=== PATIENT | female | born 1965 | race Caucasian/White ===

== ENCOUNTER 2018-12-14 07:28 | Outpatient (CLI) | payer MEDICAID ==
[2018-12-14 13:03] LABS: BASOPHILS % (AUTO) 0.7 %; EOSINOPHILS # (AUTO) 0.2 10^3/uL (0.0-0.7); EOSINOPHILS % (AUTO) 2.6 %; HGB - HEMOGLOBIN 12.9 g/dL (12.0-16.0); LYMPHOCYTES # (AUTO) 1.9 10^3/uL (1.5-3.5); MEAN CORPUSCULAR HEMOGLOBIN 30.7 pg (27.0-31.0); MEAN CORPUSCULAR VOLUME 87.8 fL (81.0-99.0); MEAN PLATELET VOLUME 8.4 fL (7.9-10.8); MONOCYTES # (AUTO) 0.3 10^3/uL (0.0-1.0); MONOCYTES % (AUTO) 5.3 %; NEUTROPHILS # (AUTO) 3.5 10^3/uL (1.5-6.6); NEUTROPHILS % (AUTO) 59.4 %; PLT - PLATELET COUNT 267 10^3/uL (130-450); RED BLOOD COUNT 4.21 10^6/uL (4.20-5.40); RED CELL DISTRIBUTION WIDTH 12.8 % (12.0-15.0); WHITE BLOOD COUNT 5.9 x10^3/uL (4.8-10.8)
[2018-12-14 13:12] LABS: ALBUMIN 4.1 g/dL (3.2-5.5); ALBUMIN/GLOBULIN RATIO 1.6 (1.0-2.2); ALKALINE PHOSPHATASE 47 IU/L (42-121); ALT ALANINE AMINOTRANSFERASE 15 IU/L (10-60); AST ASPARTATE AMINOTRANSFERASE 20 IU/L (10-42); BILIRUBIN,TOTAL 0.8 mg/dL (0.2-1.0); BUN - BLOOD UREA NITROGEN 11 mg/dL (6-20); CALCIUM 8.7 mg/dL (8.5-10.3); CARBON DIOXIDE - CO2 26 mmol/L (21-32); CHLORIDE 99 mmol/L (101-111); CHOL/HDL RATIO 2.9 (<4.4); CHOLESTEROL 221 mg/dL; CREATININE 0.6 mg/dL (0.4-1.0); GFR - MDRD 104 (>89); GLUCOSE 99 mg/dL (70-100); HDL CHOLESTEROL 75 mg/dL; LDL CHOLESTEROL,CALCULATED 125 mg/dL; LDL/HDL RATIO 1.7 (<4.4); SODIUM 132 mmol/L (135-145); TOTAL PROTEIN 6.7 g/dL (6.7-8.2); VLDL CHOLESTEROL 21 mg/dL
[2018-12-14 14:15] LABS: HB2 TOTAL 13.9 g/dL; HEMOGLOBIN A1C 0.46 g/dL; HEMOGLOBIN A1C % 5.2 % (4.6-6.2)
[2018-12-15 14:48] LABS: HEPATITIS C ANTIBODY NON-REACTIVE (NON-REACTIVE)
== END 2018-12-14 07:29 | disposition home or self-care (01) ==
LOC: LAB.F 07:28
PROVIDERS: ATTEND Registered Nurse
DX: Z00.00 Encounter for general adult medical examination without abnormal findings (principal)
CPT/HCPCS: 36415; 80053; 80061; 83036; 83721; 84443; 85025; 86803

== ENCOUNTER 2018-12-20 14:03 | Outpatient (CLI) | payer MEDICAID ==
--- NOTE | 2018-12-21 06:07 | DEXA Report ---
Reason: SCREENING FOR OSTEOPOROSIS Procedure Date: 12/20/2018 Accession Number: [id number] / [id number] Procedure: DEX - Dexa Spine and/or Hip CPT Code: FULL RESULT: EXAM: Dexa Spine and/or Hip DATE: 12/20/2018 3:24 PM CLINICAL HISTORY: SCREENING FOR OSTEOPOROSIS TECHNIQUE: Dual energy x-ray absorptiometry (DXA) was performed on a [employer] System. Regions measured are the AP Spine, femoral neck, and if needed forearm. COMPARISON: None. In accordance with the International Society for Clinical Densitometry (ISCD) guidelines, data from previous exams may be reanalyzed using current recommendations and techniques. This is done to allow a more accurate basis for comparison with the current study. FINDINGS: The data for the lumbar spine is as follows: BMD (g/cm/cm) T-SCORE Z-SCORE REGION L1 1.073 -0.5 0.4 L2 1.084 -1.0 -0.1 L3 1.090 -0.9 -0.1 L4 1.138 -0.5 0.3 TOTAL 1.099 -0.7 0.2 NOTE: All evaluable vertebrae are used for classification The data for the hip is as follows: BMD (g/cm/cm) T-SCORE Z-SCORE REGION Neck 0.845 -1.4 -0.4 TOTAL 0.884 -1.0 -0.3 NOTE: The femoral neck or total proximal femur, whichever is lowest, is used for classification. IMPRESSION: THE WHO CLASSIFICATION BASED ON THE INTERNATIONAL REFERENCE STANDARD IS OSTEOPENIA. THE FRACTURE RISK IS INCREASED. RECOMMENDATION: Patients with diagnosis of osteoporosis or osteopenia should have regular bone mineral density assessment. For those eligible for Medicare, routine testing is allowed once every 2 years. Testing frequency can be increased for patients who have rapidly progressing disease or for those who are receiving medical therapy to restore bone mass. COMMENT: World Health Organization (WHO) definitions for osteoporosis and osteopenia: NORMAL BMD: T-score at -1.0 or higher, fracture risk is low OSTEOPENIA BMD: T-score between -1.0 and -2.5, fracture risk is increased. OSTEOPOROSIS BMD: T-score at -2.5 or lower, fracture risk is high. National Osteoporosis Foundation recommends: 1. Obtain adequate dietary calcium (at least 1200 mg per day) and vitamin D (400-800 international units per day). 2. Participate, as appropriate, in regular weightbearing and muscle-strengthening exercise. 3. Avoid tobacco use and reduce alcohol and caffeine intake. 4. For more detailed information see the website at www.NOF.org.
== END 2018-12-20 14:04 | disposition home or self-care (01) ==
LOC: DI 14:03
PROVIDERS: ATTEND Registered Nurse
DX: Z13.820 Encounter for screening for osteoporosis (principal); M85.89 Other specified disorders of bone density and structure, multiple sites
CPT/HCPCS: 77080

== ENCOUNTER 2018-12-26 08:00 | Outpatient (CLI) | payer MEDICAID | END 2018-12-26 23:59 | disposition home or self-care (01) | LOC: LAB.R 08:00 | PROVIDERS: ATTEND Obstetrics & Gynecology | DX: N89.8 Other specified noninflammatory disorders of vagina (principal) | CPT/HCPCS: 87480; 87510; 87660 ==

== ENCOUNTER 2019-02-05 13:58 | Outpatient (CLI) | payer MEDICAID ==
--- NOTE | 2019-02-15 12:44 | Mammography Report ---
Reason: SCREENING MAMMO Procedure Date: 02/05/2019 Accession Number: [id number] / [id number] Procedure: ARABELLA - Screening Mammo w/Jose CPT Code: FULL RESULT: EXAM: Screening Mammo w/Jose DATE: 02/05/2019 2:39 PM CLINICAL HISTORY: Routine screening. No reported personal or family history of breast cancer. History of benign right breast biopsy. TECHNIQUE: (B) - Bilateral CC and MLO views were obtained. COMPARISON: 10/30/2015, 07/02/2014 PARENCHYMAL PATTERN: (D) - The breasts demonstrate heterogeneously dense fibroglandular parenchyma bilaterally. FINDINGS: Right breast: Stable biopsy marker is noted in the anterior 12:00 breast. There is a stable one view asymmetry seen in the cc view, posterior central, along the posterior glandular cone extending into the retroglandular fat. No change compared to 2013. No suspicious masses, calcifications or areas of distortion. Left breast: There are no suspicious masses, calcifications, or areas of distortion. IMPRESSION: Benign findings. BI-RADS category 2. RECOMMENDATION: (ANNUAL) - Recommend routine annual screening mammography. BI-RADS CATEGORY: (2) - Benign Findings. STANDARD QUALIFYING STATEMENTS: 1. This examination was not reviewed with the aid of Computer-Aided Detection (CAD). 2. A negative or benign imaging report should not preclude biopsy if clinically suspicious findings are present. 3. Dense breasts may obscure an underlying neoplasm. 4. This examination was reviewed with the aid of 3D breast imaging (tomosynthesis).
== END 2019-02-05 13:59 | disposition home or self-care (01) ==
LOC: DI 13:58
DX: Z12.31 Encounter for screening mammogram for malignant neoplasm of breast (principal)
CPT/HCPCS: 77063; 77067

== ENCOUNTER 2019-12-06 16:13 | Outpatient (CLI) | payer MEDICAID | END 2019-12-06 16:14 | disposition home or self-care (01) | LOC: LAB 16:13 | PROVIDERS: ATTEND Obstetrics & Gynecology | DX: N95.0 Postmenopausal bleeding (principal) | CPT/HCPCS: 36415; 82670; 83001 ==

== ENCOUNTER 2020-03-06 14:44 | Outpatient (CLI) | payer MEDICAID ==
--- NOTE | 2020-03-06 15:58 | Ultrasound Report ---
Reason: POSTMENOPAUSAL BLEEDING Procedure Date: 03/06/2020 Accession Number: [id number] / [id number] Procedure: US - Pelvic w/Transvaginal CPT Code: Final Report FULL RESULT: PROCEDURE: Pelvic w/Transvaginal INDICATIONS: POSTMENOPAUSAL BLEEDING TECHNIQUE: Real-time scanning was performed of the pelvic organs, with image documentation. Additional endovaginal scanning was necessary due to incomplete visualization of the adnexal and endometrial structures by transabdominal scanning. COMPARISON: None. FINDINGS: Transabdominal scanning: Limited scanning through the kidneys shows no hydronephrosis. No pathologic free abdominal or pelvic fluid. Endovaginal scanning: Uterus: Uterus is normal in size at 8.3 x 3.2 x 4.4 cm. The endometrium measures 2.8 mm in combined thickness. Ovaries: Right ovary measures 2.3 x 1.4 x 1.4 cm. The left ovary measures 2.2 x 2.1 x 1.2 cm. by Less than 12 simple follicles are identified bilaterally. Arterial and venous flow are present bilaterally. IMPRESSION: Unremarkable exam. If bleeding persists, further MULTIGRAPHER evaluation is recommended. Reviewed by: Nelia Centeno MD on 03/06/2020 3:57 PM PDT Approved by: Nelia Centeno MD on 03/06/2020 3:57 PM PDT Station ID: [id number]
== END 2020-03-06 14:45 | disposition home or self-care (01) ==
LOC: DI 14:44
PROVIDERS: ATTEND Obstetrics & Gynecology
DX: N95.0 Postmenopausal bleeding (principal)
CPT/HCPCS: 76830; 76856

== ENCOUNTER 2020-04-09 09:51 | Outpatient (CLI) | payer MEDICAID ==
[2020-04-09 15:11] LABS: BASOPHILS # (AUTO) 0.1 10^3/uL (0.0-0.1); EOSINOPHILS # (AUTO) 0.2 10^3/uL (0.0-0.7); EOSINOPHILS % (AUTO) 2.9 %; HGB - HEMOGLOBIN 12.4 g/dL (12.0-16.0); LYMPHOCYTES # (AUTO) 1.8 10^3/uL (1.5-3.5); LYMPHOCYTES % (AUTO) 29.6 %; MEAN CORPUSCULAR HEMOGLOBIN 30.5 pg (27.0-31.0); MEAN CORPUSCULAR HGB CONC 33.4 g/dL (32.0-36.0); MEAN CORPUSCULAR VOLUME 91.4 fL (81.0-99.0); MEAN PLATELET VOLUME 10.2 fL (7.9-10.8); MONOCYTES # (AUTO) 0.4 10^3/uL (0.0-1.0); MONOCYTES % (AUTO) 5.7 %; NEUTROPHILS # (AUTO) 3.7 10^3/uL (1.5-6.6); NEUTROPHILS % (AUTO) 60.6 %; PLT - PLATELET COUNT 267 10^3/uL (130-450); RED BLOOD COUNT 4.06 10^6/uL (4.20-5.40); RED CELL DISTRIBUTION WIDTH 12.5 % (12.0-15.0); WHITE BLOOD COUNT 6.1 x10^3/uL (4.8-10.8)
[2020-04-09 15:31] LABS: H. PYLORIS ANTIGEN STL NEGATIVE (Negative)
== END 2020-04-09 09:52 | disposition home or self-care (01) ==
LOC: LAB.S 09:51
PROVIDERS: ATTEND Family Medicine
DX: Z86.39 Personal history of other endocrine, nutritional and metabolic disease (principal); R10.9 Unspecified abdominal pain
CPT/HCPCS: 36415; 84443; 85025; 87338

== ENCOUNTER 2020-11-26 10:20 | Outpatient (CLI) | payer MEDICAID | END 2020-11-26 23:59 | disposition home or self-care (01) | LOC: COV 10:20 | PROVIDERS: ATTEND Family Medicine | DX: M79.10 Myalgia, unspecified site (principal); R53.83 Other fatigue; R68.83 Chills (without fever); R09.81 Nasal congestion; Z20.822 Contact with and (suspected) exposure to COVID-19 ==

== ENCOUNTER 2021-05-07 15:51 | Outpatient (CLI) | payer MEDICAID | END 2021-05-07 15:52 | disposition home or self-care (01) | LOC: COV 15:51 | PROVIDERS: ATTEND Family Medicine | DX: R50.9 Fever, unspecified (principal); M79.10 Myalgia, unspecified site; R53.83 Other fatigue; Z20.822 Contact with and (suspected) exposure to COVID-19 ==

== ENCOUNTER 2021-05-07 16:49 | Outpatient (CLI) | payer MEDICAID ==
--- NOTE | 2021-05-08 09:27 | Ultrasound Report ---
PROCEDURE: Pelvic w/Transvaginal INDICATIONS: POST MENOPAUSAL BLEEDING, ABD PAIN TECHNIQUE: Real-time scanning was performed of the pelvic organs, with image documentation. Additional endovagi nal scanning was necessary due to incomplete visualization of the adnexal and endometrial structures by transabdominal scanning. COMPARISON: 03/06/2020 FINDINGS: No pathologic free abdominal or pelvic fluid. Uterus: Uterus is anteverted and normal in size at 7.1 x 3.0 x 4.0 cm. The endometrium measures 4.6 mm in combined thickness. The myometrium is slightly heterogeneous with no discrete mass. There is a trace amount of simple fluid in the endocervix. Normal myometrial vascularity. Ovaries: The right ovary measures 1.6 x 1.0 x 1.6 cm for a volume of 1.2 cc. The left ovary measures 0.8 x 0.9 x 1.0 cm for a volume of 0.4 cc. There is normal echotexture to each ovary without dominan t follicle. No suspicious adnexal masses. IMPRESSION: 1. Mildly heterogeneous uterus with normal thickness endometrium for postmenopausal female. If there is concern for endometriosis, MR imaging of the pelvis may be useful. 2. Age-appropriate ovaries. Reviewed by: Mireille Quinn MD on 05/08/2021 9:26 AM PDT Approved by: Mireille Quinn MD on 05/08/2021 9:26 AM PDT Station ID: [id number]
== END 2021-05-07 16:50 | disposition home or self-care (01) ==
LOC: DI 16:49
PROVIDERS: ATTEND Obstetrics & Gynecology
DX: N95.0 Postmenopausal bleeding (principal); R10.9 Unspecified abdominal pain; R50.9 Fever, unspecified; M79.10 Myalgia, unspecified site; R53.83 Other fatigue; Z20.822 Contact with and (suspected) exposure to COVID-19

== ENCOUNTER 2021-05-25 08:00 | Outpatient (CLI) | payer MEDICAID ==
[2021-05-25 22:24] LABS: CHLAMYDIA TRACHOMATIS DNA NEGATIVE (NEGATIVE); NEISSERIA GONORRHOEAE DNA NEGATIVE (NEGATIVE); TRICHOMONAS VAGINALIS DNA NEGATIVE (NEGATIVE)
== END 2021-05-25 23:59 | disposition home or self-care (01) ==
LOC: LAB.WC 08:00
PROVIDERS: ATTEND Obstetrics & Gynecology
DX: Z11.3 Encounter for screening for infections with a predominantly sexual mode of transmission (principal)
CPT/HCPCS: 87491; 87591; 87661

== ENCOUNTER 2021-06-09 08:32 | Day surgery (SDC) | payer MEDICAID ==
--- NOTE | 2021-06-09 08:09 | HISTORY & PHYSICAL EXAMINATION ---
HPI - History of Present Illness HPI Comment/Other: CC: Bleeding problems HPI: Patient presents today for a pre-operative appointment for a hysteroscopy D&C/endometrial biopsy. Patient is a 55 yo previously seen by Dr. Marcum here for preop assessment. Patient has had on going vaginal bleeding. She is on HRT and notes that she bleeds if she forgets to take her progesterone. Also has postcoital bleeding. Had some bloating a month or so ago and was very concerned regarding cancer risk. Had an aunt that of ovarian cancer. Pelvic us was performed which showed normal ovaries and EMS 4.6 mm. She was counseled to present for EMB in setting of continued bleeding. She has had several EMB and desires hysteroscopy D&C. Has had bloating anf puffiness and cannot pull her abdomen in. Also has backache. Had COVID testing. Has had a new partner in the last year. No GCCT testing. Denies dypsareunia. No changes in bowel habits. Has hot flashes every 50 minutes while off HRT. She had soft stools during the period of bloating. Lost 7# unintentionally. Has been on HRT for 5 years. Has a MMG every November. Due for colonoscopy. Allergies: * SEASONAL ALLERGIES (Critical) Medications: CombiPatch 0.05-0.14 mg/24 hr patch semiweekly (estradiol-norethindrone acet) Apply 1 patch to skin twice a week PROGESTERONE MICRONIZED 100 MG ORAL CAPSULE (PROGESTERONE MICRONIZED) 1 pill by mouth at bedtime; Route: ORAL ESTRADIOL 0.05 MG/24HR TRANSDERMAL PATCH TWICE WEEKLY (ESTRADIOL) Apply patch to skin remove and replace twice weekly; Route: TRANSDERMAL ESCITALOPRAM OXALATE 5 MG ORAL TABLET (ESCITALOPRAM OXALATE) 1 daily; Route: ORAL Problems: Preoperative examination (ICD-V72.84) (KLT69-C63.818) Std screening (ICD-V74.5) (YBW99-W25.3) GERD (ICD-530.81) (MCP88-N59.9) History of thyroid cyst (ICD-V12.29) (TZW15-R94.39) Abdominal pain (ICD-789.00) (HUO46-R91.9) Postmenopausal bleeding (ICD-627.1) (LNE00-H29.0) Anxiety (ICD-300.00) (SDJ01-M18.9) Foul smelling vaginal discharge (ICD-623.5) (XVG32-W29.8) Annual gynecological examination (ICD-V72.3) (HMG33-G95.419) Screening for colon cancer - fecal blood antigen (ICD-V76.51) (TXC52-I39.11) Actinic keratosis (ICD-702.0) (NNA94-J31.0) Perimenopausal state (ICD-627.2) (MYX62-L45.0) Acne rosacea (ICD-695.3) (SWN68-L58.9) Pelvic floor instability (ICD-618.89) (OCJ58-H85.89) Knee pain, chronic (ICD-719.46) (SQS01-O07.569) Depression, chronic (ICD-311) (MIV21-G73.9) Vital Signs: Patient Profile: 55 Years Old Female Height: 65.5 inches Weight: 135.4 pounds BMI: 22.27 BP sittin / 72 Cuff size: regular Pt. in pain? no Vitals Entered By: Jaquelin Dee RN (May 21, 2021 2:07 PM) Past Medical History: Depression with antidepressant therapy hospitalization x 5 days - depression with SI secondary to withdrawal from alprazolam No trauma/injuries/disabilities/transfusions/toxic-hazardous occupational exposures No service/lived in [place] x 1 year [id number] Bilateral knee pain 3-compartment pelvic floor dysfunction Acne rosacea Anxiety Ovarian Cysts Past Surgical History: Septoplasty for deviated septum and resection of turbinates Right breast biopsy with remaining staple as marker of site TAb x 1 Hysteroscopy VP TREASURER Review of Systems ROS Comments: As per HPI, otherwise remaining systems are negative. Physical Constitutional: GEN: NAD HEAD: NCAT EYES: No scleral icterus or conjunctival injection CV: RRR RESP: CTAB, normal effort ABD: S&NT/ND PSYCH: appropriate affect NEURO: alert and oriented, normal gait and coordination EXT: WWP Impression & Recommendations: Problem # 1: Preoperative examination (ICD-V72.84) (TVU66-Z94.818) Orders: PRE OP -31755 (CPT-13909) Reviewed risks/benefits/alternatives to hysteroscopy/polpectomy Risks include, but are not limited to, bleeding, infection, damage to neatby tissue and organs. On average, expected EBL is minimal. In the event of an unanticipated blood loss, patient is willing to undergo transfusion. Risks of blood transfusion include infection as well as transfusion reaction Risk of HIV 1/2million nationwide Risk of Hepatitis 1/1 million Risks of transfusion reaction and mgt reviewed Infection risk low given that no incisions marbella be made and we will be using physiologic orifices. Will provide IV abx in the event of uterine perforation. Damage to nearby tissue and organs was reviewed with emphasis on uterine perforation and management, which can include surgical intervention based on bleeding risk. Reviewed management of complications and efforts to avoid such outcomes but reviewed that they may occur despite our best efforts. Patient agreed to the aforementioned procedure and written informed consent was obtained. Problem # 2: Perimenopausal state (ICD-627.2) (UAT31-O33.0) Having trouble managing transdermal ERT and oral micronized progesterone Will transition to Combipatch to get better coverage of progesterone with estrogen Order submitted. Reviewed need to transition off ERT with continued bleeding Problem # 3: Screening for colon cancer - fecal blood antigen (ICD-V76.51) (DRN08-E19.11) Orders: Colonoscopy Screening (CPT-01950) Medications Added to Medication List This Visit: 1) Combipatch 0.05-0.14 Mg/24 Hr Patch Semiweekly (Estradiol-norethindrone acet) .... Apply 1 patch to skin twice a week Other Orders: CHLAM, NEISSERIA, TRICH DNA (CPT-80667, 72387) Medications: Added new medication of CombiPatch 0.05-0.14 mg/24 hr patch semiweekly (estradiol-norethindrone acet) Apply 1 patch to skin twice a week ; Route: TO SKIN - Signed Rx of CombiPatch 0.05-0.14 mg/24 hr patch semiweekly (estradiol-norethindrone acet) Apply 1 patch to skin twice a week ; #26 patch x 4; Signed; Entered by: Ping Amador MD PHD MPH; Authorized by: Ping Amador MD PHD MPH; Method used: Electronically to [facility] [address] [place] [address], [address], [place] [address], Fax: , Prescriptions: CombiPatch 0.05-0.14 mg/24 hr patch semiweekly (estradiol-norethindrone acet) Apply 1 patch to skin twice a week #26 patch x 4 Entered and Authorized by: Ping Amador MD PHD MPH Method used: Electronically to [facility] [address], [address], [place] [address], RxID: [id number] Gender ID Identifies as Female P: 0 IAB: 1 Height: 65.5 (08/14/2020 1:20:55 PM) Weight: 135.4 Is pt sexualy active? no Last Mammo: No changes from 2014 noted. Annual screening recommended. Thanks! (02/05/2019 2:00:56 PM) Last Pap: Unsatisfactory (12/25/2018 10:58:42 AM) PMH/PSH - Past Medical History Cardiovascular: positive: None Respiratory: positive: None Endocrine/Autoimmune: positive: None GI: positive: GERD : positive: Chronic bladder infection HEENT: positive: Chronic vision loss Psych: positive: Depression, Panic attacks, Post traumatic stress disorder Musculoskeletal: positive: Chronic back pain Derm: positive: Rosacea MRSA Hx?: No - Past Surgical History /VP TREASURER: positive: Other Social & Family Hx - Social History Substance Use and Type: Marijuana Meds/Allgy - Home Medications Home Medications: Ambulatory Orders Medication Instructions Recorded Confirmed Estradiol 0.05 mg Patch [Climara 1 each TOP Q3D 06/05/21 06/05/21 0.05 mg] Progesterone,Micronized 100 mg PO QPM 06/05/21 06/05/21 [Prometrium] - Allergies Allergies/Adverse Reactions: Allergies Allergy/AdvReac Type Severity Reaction Status Date / Time No Known Drug Allergies Allergy Verified 06/05/21 07:13
[~2021-06-09 08:32] MED LIST: LIDOCAINE 2%-EPI 1:100000 20 ML MDV ONE; SILVER NITRATE APPLICATOR TOP ONE
[2021-06-09] MEDS ORDERED: ACETAMINOPHEN 500 MG TABLET PO ONE (08:43)
[2021-06-09] MEDS ORDERED: GABAPENTIN 400 MG CAPSULE ONE (08:44)
[2021-06-09] MEDS ORDERED: CELECOXIB 100 MG CAPSULE PO ONE (08:44)
[2021-06-09] MEDS ORDERED: LACTATED RINGERS 1,000 ML IV ONE ×2 (08:51→10:29)
[2021-06-09] MEDS ORDERED: MIDAZOLAM 2 MG/2 ML VIAL ONE (09:25)
[2021-06-09] MEDS ORDERED: fentaNYL 100 MCG/2 ML VIAL ONE (09:25)
[2021-06-09] MEDS ORDERED: LIDOCAINE-MPF 2% 5 ML VIAL ONE (09:26)
--- NOTE | 2021-06-09 09:26 | ANESTHESIA ---
Pre-Anesthesia VS, & Labs - Diagnosis heavy menstrual bleeding, cervical screening - Procedure hysterscopy, D and C, endometrial biopsy Vital Signs: Temp Pulse Resp BP Pulse Ox 36.7 C 68 16 121/68 98 06/09/21 08:51 06/09/21 08:51 06/09/21 08:51 06/09/21 08:51 06/09/21 08:51 Height: 5 ft 6 in Weight (kg): 61.4 kg Body Mass Index: 21.8 BMI Classification: Healthy weight - NPO >8 hours - Is Patient ?: No - Lab Results Current Lab Results: Laboratory Tests 06/09/21 09:03: POC Whole Bld Glucose 79 Home Medications and Allergies Home Medications: Ambulatory Orders Estradiol 0.05 mg Patch [Climara 0.05 mg] 1 each TOP Q3D 06/05/21 Progesterone,Micronized [Prometrium] 100 mg PO QPM 06/05/21 Estradiol 0.05 mg Patch [Climara 0.05 mg] 1 each TOP Q3D 06/05/21 Progesterone,Micronized [Prometrium] 100 mg PO QPM 06/05/21 Allergies/Adverse Reactions: Allergies Allergy/AdvReac Type Severity Reaction Status Date / Time No Known Drug Allergies Allergy Verified 06/05/21 07:13 Anes History & Medical History - Anesthetic History Anesthesia Complications: reports: No previous complications - Medical History Cardiovascular: reports: None Pulmonary: reports: None Gastrointestinal: reports: GERD Urinary: reports: Chronic bladder infection Musculoskeletal: reports: Chronic back pain Endocrine/Autoimmune: reports: None Skin: reports: Rosacea - Surgical History Gynecologic: reports: Other Exam General: Alert, Oriented x3, Cooperative Dental: WNL Mouth Opening: Greater than 4 Fingerbreadths Neck Mobility: Normal Mallampati classification: I Thyromental Distance: greater than 6 cm Respiratory: Lungs clear Cardiovascular: Regular rate Plan Anesthesia Type: General, Total IV Consent for Procedure(s) Verified and Reviewed: Yes Code Status: Attempt Resuscitation ASA classification: 1-Healthy patient Is this case an emergency?: No
[2021-06-09] MEDS ORDERED: ATROPINE ABBOJECT 1 MG/10 ML SYRINGE IVP PRN (09:28)
[2021-06-09] MEDS ORDERED: METOCLOPRAMIDE 10 MG/2 ML VIAL IVP PRN (09:28)
[2021-06-09] MEDS ORDERED: NALOXONE 0.4 MG/ML VIAL IVP PRN (09:28)
[2021-06-09] MEDS ORDERED: MORPHINE 2 MG/ML CARPUJECT IVP PRN (09:28)
[2021-06-09] MEDS ORDERED: ONDANSETRON 4 MG/2 ML VIAL IVP PRN (09:28)
[2021-06-09] MEDS ORDERED: HYDROmorphone 0.5 MG/0.5 ML SYRINGE IVP PRN (09:28)
[2021-06-09] MEDS ORDERED: fentaNYL 100 MCG/2 ML VIAL IVP PRN (09:28)
[2021-06-09] MEDS ORDERED: ePHEDrine 50 MG/ML VIAL IVP PRN (09:28)
--- NOTE | 2021-06-09 09:36 | OPERATIVE REPORT ---
Operative Report - General Procedure Date: 06/09/21 Planned Procedure: pap smear, hysteroscopy D&C Pre-Op Diagnosis: thickened endometrium, cervical cancer screening Procedure Performed: Pap smear and hysteroscopy D&C Post Op Diagnosis: Same - Procedure Note Primary Surgeon: Subha Amador MD Anesthesia Provider: NAY Irby Anesthesia Technique: General mask Pathology: pap smear uterine contents IV Fluids (mL): 900 Estimated Blood Loss (mL): 5 Urine Output (mL): 200 Indications: Patient is a 55 yo previously seen by Dr. Marcum here for hysteroscopy D&C. Patient has had on going vaginal bleeding. She is on HRT and notes that she bleeds if she forgets to take her progesterone. Also has postcoital bleeding. Had some bloating a month or so ago and was very concerned regarding cancer risk. Had an aunt that of ovarian cancer. Pelvic us was performed which showed normal ovaries and EMS 4.6 mm. She was counseled to present for EMB in setting of continued bleeding. She has had several EMBs and desires hysteroscopy D&C. Findings: Mildly thickened endometrium, normal uterine cavity and bilateral tubal ostia Complications: none - Other Other Information/Narrative: Risks benefits and alternatives to the procedure were reviewed. Consent was again confirmed. Patient was taken to the operating room where she underwent general anesthesia. She was positioned in dorsolithotomy position with legs resting in yellowfin stirrups. Exam under anesthesia was provided. Speculum was placed and cervix was visualized. Pap smear was collected. Speculum was removed. She was prepped and draped in the usual sterile fashion. Preoperative antibiotics were not indicated. Preoperative checklist was performed. Exam under anesthesia was performed. Speculum was placed in the vagina and the cervix was visualized. Single-tooth tenaculum was placed at the anterior cervical lip. Paracervical block was administered using a total of 20 cc of 2% lidocaine with epinephrine was injected at the 4:00 and 8:00 positions lateral to the portio of the cervix. The cervical os was serially dilated with Hegar dilators to accommodate the caliber of the diagnostic hysteroscope. The hysteroscope was inserted and findings were noted as above. Hysteroscope was removed. Sharp curettage D&C was performed with sharp curettage. Hysteroscope was reinserted and uterine cavity had been cleared of thickened lining. All instruments were removed from the uterus. Tenaculum was removed. Tenaculum sites were noted to be hemostatic. All instruments were removed from the vagina. Procedure was well-tolerated without complication. Fluid deficit: [address] Guan was present for proctoring purposes.
[2021-06-09] MEDS ORDERED: ONDANSETRON 4 MG/2 ML VIAL ONE (09:48)
[2021-06-09] MEDS ORDERED: LACTATED RINGERS 1,000 ML IV SCH (10:00)
[2021-06-09] MEDS ORDERED: LIDOCAINE 2%-EPI 1:100000 20 ML MDV SUBQ ONE (10:07)
[2021-06-09] MEDS ORDERED: oxyCODONE 5 MG TABLET PO PRN (10:37)
[2021-06-09 11:48] VITALS: BP 115/63
--- NOTE | 2021-06-09 12:53 | ANESTHESIA POST OP EVALUATION ---
Anesthesia Post Eval - Post Anesthesia Eval Vitals: Last Vital Signs Temp 36.7 C 06/09/21 11:47 Pulse 72 06/09/21 11:47 Resp 16 06/09/21 11:47 BP 115/63 06/09/21 11:47 Pulse Ox 100 06/09/21 11:47 CV Function Including HR & BP: Stable Pain Control: Satisfactory Nausea & Vomiting: Negative Mental Status: Baseline Respiratory Status: Airway Patent Hydration Status: Satisfactory Anesthesia Complications: None
== END 2021-06-09 08:33 | disposition home or self-care (01) ==
LOC: SDS 08:32
PROVIDERS: ATTEND Obstetrics & Gynecology
PROC: 0UJD8ZZ Inspection of Uterus and Cervix, Via Natural or Artificial Opening Endoscopic (ICD-10-PCS; 2021-06-09)
PROC: 0UDB7ZZ Extraction of Endometrium, Via Natural or Artificial Opening (ICD-10-PCS; principal; 2021-06-09 09:45)
DX: N95.0 Postmenopausal bleeding (principal); R93.89 Abnormal findings on diagnostic imaging of other specified body structures; Z12.4 Encounter for screening for malignant neoplasm of cervix; N93.0 Postcoital and contact bleeding; Z79.890 Hormone replacement therapy
CPT/HCPCS: 58558; A9270; J7120

== ENCOUNTER 2021-12-18 08:22 | Day surgery (SDC) | payer MEDICAID ==
[2021-12-18] MEDS ORDERED: LACTATED RINGERS 1,000 ML IV ONE ×2 (08:47→10:09)
[2021-12-18] MEDS ORDERED: PROPOFOL 500 MG/50 ML 500 MG/50 ML VIAL ONE (08:52)
--- NOTE | 2021-12-18 09:13 | ANESTHESIA ---
Pre-Anesthesia VS, & Labs - Diagnosis screening - Procedure colonoscopy Vital Signs: Temp Pulse Resp BP Pulse Ox 36.7 C 71 13 130/88 H 100 12/18/21 08:40 12/18/21 08:40 12/18/21 08:40 12/18/21 08:40 12/18/21 08:40 Height: 5 ft 7 in Weight (kg): 61 kg Body Mass Index: 21.0 BMI Classification: Healthy weight - NPO >8 hours - Is Patient ?: No - Lab Results Lab results reviewed: Yes Home Medications and Allergies Estradiol 0.05 mg Patch [Climara 0.05 mg] 1 each TOP Q3D 06/05/21 Progesterone,Micronized [Prometrium] 100 mg PO QPM 06/05/21 Allergies/Adverse Reactions: Allergies Allergy/AdvReac Type Severity Reaction Status Date / Time No Known Drug Allergies Allergy Verified 12/17/21 11:57 Anes History & Medical History - Anesthetic History Anesthesia Complications: reports: No previous complications Family history of Anesthesia Complications: Denies Family history of Malignant Hyperthermia: Denies - Medical History Cardiovascular: reports: None Pulmonary: reports: None Gastrointestinal: reports: GERD Urinary: reports: Chronic bladder infection Musculoskeletal: reports: Chronic back pain Endocrine/Autoimmune: reports: None Skin: reports: Rosacea Psychosocial: reports: Anxiety - Surgical History Eyes Ears Nose Throat (EENT): reports: Rhinoplasty Gynecologic: reports: Other Exam General: Alert, Oriented x3, Cooperative, No acute distress Dental: WNL Mouth Openin Fingerbreadth Neck Mobility: Normal Mallampati classification: II Plan Anesthesia Type: General, Total IV Consent for Procedure(s) Verified and Reviewed: Yes Code Status: Attempt Resuscitation ASA classification: 2-Mild systemic disease Is this case an emergency?: No
[2021-12-18] MEDS ORDERED: MIDAZOLAM 2 MG/2 ML VIAL ONE (09:29)
[2021-12-18] MEDS ORDERED: LIDOCAINE-MPF 2% 5 ML VIAL ONE (09:54)
[2021-12-18 10:20] VITALS: BP 98/51
--- NOTE | 2021-12-18 11:40 | ANESTHESIA POST OP EVALUATION ---
Anesthesia Post Eval - Post Anesthesia Eval Vitals: Last Vital Signs Temp 36.5 C 12/18/21 10:20 Pulse 59 L 12/18/21 10:20 Resp 17 12/18/21 10:20 BP 98/51 L 12/18/21 10:20 Pulse Ox 100 12/18/21 10:20 CV Function Including HR & BP: Stable Pain Control: Satisfactory Nausea & Vomiting: Negative Mental Status: Baseline Respiratory Status: Airway Patent Hydration Status: Satisfactory Anesthesia Complications: None
== END 2021-12-18 08:23 | disposition home or self-care (01) ==
LOC: SDS 08:22
PROVIDERS: ATTEND Surgery
DX: Z12.11 Encounter for screening for malignant neoplasm of colon (principal); F41.9 Anxiety disorder, unspecified
CPT/HCPCS: 45378; J7120

== ENCOUNTER 2022-09-13 07:48 | Outpatient (CLI) | payer MEDICAID ==
[2022-09-13 14:24] LABS: BASOPHILS # (AUTO) 0.1 10^3/uL (0.0-0.1); BASOPHILS % (AUTO) 0.9 %; EOSINOPHILS # (AUTO) 0.1 10^3/uL (0.0-0.7); EOSINOPHILS % (AUTO) 2.1 %; HCT - HEMATOCRIT 40.5 % (37.0-47.0); HGB - HEMOGLOBIN 13.4 g/dL (12.0-16.0); LYMPHOCYTES % (AUTO) 29.1 %; MEAN CORPUSCULAR HEMOGLOBIN 30.3 pg (27.0-31.0); MEAN CORPUSCULAR HGB CONC 33.1 g/dL (32.0-36.0); MEAN CORPUSCULAR VOLUME 91.6 fL (81.0-99.0); MONOCYTES # (AUTO) 0.5 10^3/uL (0.0-1.0); MONOCYTES % (AUTO) 6.8 %; NEUTROPHILS # (AUTO) 4.2 10^3/uL (1.5-6.6); NEUTROPHILS % (AUTO) 60.8 %; PLT - PLATELET COUNT 292 10^3/uL (130-450); RED BLOOD COUNT 4.42 10^6/uL (4.20-5.40); RED CELL DISTRIBUTION WIDTH 12.5 % (12.0-15.0); WHITE BLOOD COUNT 6.8 x10^3/uL (4.8-10.8)
[2022-09-13 15:26] LABS: ALBUMIN 4.1 g/dL (3.2-5.5); ALBUMIN/GLOBULIN RATIO 1.5 (1.0-2.2); ALKALINE PHOSPHATASE 50 IU/L (42-121); ALT ALANINE AMINOTRANSFERASE 12 IU/L (10-60); AST ASPARTATE AMINOTRANSFERASE 16 IU/L (10-42); BILIRUBIN,TOTAL 0.7 mg/dL (0.2-1.0); BUN - BLOOD UREA NITROGEN 14 mg/dL (6-20); CALCIUM 9.4 mg/dL (8.5-10.3); CARBON DIOXIDE - CO2 29 mmol/L (21-32); CHLORIDE 102 mmol/L (101-111); CHOL/HDL RATIO 3.4 (<4.4); CHOLESTEROL 218 mg/dL; CREATININE 0.7 mg/dL (0.4-1.0); GFR - MDRD 86 (>89); GLUCOSE 93 mg/dL (70-100); HDL CHOLESTEROL 64 mg/dL; LDL CHOLESTEROL,CALCULATED 138 mg/dL; LDL/HDL RATIO 2.2 (<4.4); POTASSIUM 3.9 mmol/L (3.5-5.0); SODIUM 138 mmol/L (135-145); TOTAL PROTEIN 6.8 g/dL (6.7-8.2); TRIGLYCERIDES 81 mg/dL; VLDL CHOLESTEROL 16 mg/dL
[2022-09-13 15:39] LABS: THYROID STIMULATING HORMONE 1.19 uIU/mL (0.34-5.60)
== END 2022-09-13 07:49 | disposition home or self-care (01) ==
LOC: LAB.S 07:48
PROVIDERS: ATTEND Registered Nurse
DX: E78.5 Hyperlipidemia, unspecified (principal); Z13.228 Encounter for screening for other metabolic disorders; Z13.29 Encounter for screening for other suspected endocrine disorder; Z13.0 Encounter for screening for diseases of the blood and blood-forming organs and certain disorders involving the immune mechanism
CPT/HCPCS: 36415; 80053; 80061; 83721; 84443; 85025

== ENCOUNTER 2022-09-20 13:50 | Outpatient (CLI) | payer MEDICAID ==
--- NOTE | 2022-09-21 10:45 | Mammography Report ---
BILATERAL DIGITAL SCREENING MAMMOGRAM 3D/2D WITH EXAGGERATED CC: 09/20/2022 CLINICAL: Routine screening. Comparison is made to exams dated: 02/05/2019 mammogram - [facility], 10/30/2015 mamm ogram, and 07/02/2014 mammogram - [facility]. There are scattered areas of fibroglandular density in both breasts (category b / 25%-50% glandular t issue). There are benign calcifications in the right breast. No significant masses, calcifications, or other findings are seen in either breast. There has been no significant interval change. IMPRESSION: BENIGN There is no mammographic evidence of malignancy. A 1 year screening mammogram is recommended. Based on the Tyrer Cuzick model (a risk assessment model) the patients lifetime risk is 6.9% and her 10 year risk is 2.6%. According to the ACR, ACS, and NCCN guidelines, an annual breast MRI exam marla g with mammogram is recommended if the patients lifetime risk is 20% or greater. This exam was interpreted at Station ID: [id number]. NOTE: For mammograms, a report in lay terms will be sent to the patient. Approximately 15% of breast malignancies will not be visualized mammographically. In the management of a palpable breast mass, a negative mammogram must not discourage biopsy of a clinically suspicious lesion. Electronically Signed By: Harley Rehman M.D. acr/penrad:09/20/2022 17:31:08 ACR BI-RADS Category 2: Benign Finding(s) 3342F PARENCHYMAL PATTERN: (A) - The breast(s) demonstrate(s) scattered fibroglandular densities. BI-RADS CATEGORY: (2) - 2 RECOMMENDATION: (ANNUAL) - Recommend routine annual screening mammography. [id number] 1 year screening LATERALITY: (B)
== END 2022-09-20 13:51 | disposition home or self-care (01) ==
LOC: DI.S 13:50
PROVIDERS: ATTEND Obstetrics & Gynecology
DX: Z12.31 Encounter for screening mammogram for malignant neoplasm of breast (principal)

== ENCOUNTER 2023-05-24 08:00 | Outpatient (CLI) | payer MEDICAID ==
[2023-05-24 21:38] LABS: BACTERIAL VAGINOSIS DNA NEGATIVE (NEGATIVE); CANDIDA GLABRATA DNA NEGATIVE (NEGATIVE); CANDIDA GROUP DNA NEGATIVE (NEGATIVE); CANDIDA KRUSEI DNA NEGATIVE (NEGATIVE); TRICHOMONAS VAGINALIS DNA NEGATIVE (NEGATIVE)
== END 2023-05-24 23:59 | disposition home or self-care (01) ==
LOC: LAB.WC 08:00
PROVIDERS: ATTEND Obstetrics & Gynecology
DX: N76.0 Acute vaginitis (principal)
CPT/HCPCS: 81514

== ENCOUNTER 2023-06-08 07:20 | Outpatient (CLI) | payer MEDICAID ==
[2023-06-08 15:15] LABS: HCT - HEMATOCRIT 41.8 % (37.0-47.0); HGB - HEMOGLOBIN 13.6 g/dL (12.0-16.0); MEAN CORPUSCULAR HEMOGLOBIN 30.3 pg (27.0-31.0); MEAN CORPUSCULAR HGB CONC 32.5 g/dL (32.0-36.0); MEAN CORPUSCULAR VOLUME 93.1 fL (81.0-99.0); MEAN PLATELET VOLUME 10.6 fL (7.9-10.8); RED BLOOD COUNT 4.49 10^6/uL (4.20-5.40); RED CELL DISTRIBUTION WIDTH 12.4 % (12.0-15.0)
[2023-06-08 15:44] LABS: ALBUMIN 4.4 g/dL (3.2-5.5); ALBUMIN/GLOBULIN RATIO 1.9 (1.0-2.2); BILIRUBIN,TOTAL 0.6 mg/dL (0.2-1.0); CALCIUM 9.8 mg/dL (8.5-10.3); CREATININE 0.7 mg/dL (0.6-1.3); POTASSIUM 4.4 mmol/L (3.5-4.5); TOTAL PROTEIN 6.7 g/dL (6.4-8.9)
[2023-06-08 15:59] LABS: THYROID STIMULATING HORMONE 1.58 uIU/mL (0.34-5.60)
[2023-06-08 16:05] LABS: FERRITIN 25.4 ng/mL (11.0-306.8)
== END 2023-06-08 07:21 | disposition home or self-care (01) ==
LOC: LAB.S 07:20
PROVIDERS: ATTEND Registered Nurse
DX: R68.89 Other general symptoms and signs (principal); R20.2 Paresthesia of skin; R53.83 Other fatigue
CPT/HCPCS: 36415; 80053; 82306; 82607; 82728; 84443; 85027

== ENCOUNTER 2023-06-09 07:01 | Outpatient (CLI) | payer MEDICAID ==
--- NOTE | 2023-06-09 15:18 | Ultrasound Report ---
PROCEDURE: Pelvic w/Transvaginal INDICATIONS: POST MENOPAUSAL BLEEDING TECHNIQUE: Real-time scanning was performed of the pelvic organs, with image documentation. Additional endovagi nal scanning was necessary due to incomplete visualization of the adnexal and endometrial structures by transabdominal scanning. COMPARISON: Pelvic ultrasound 05/07/2021 FINDINGS: Uterus: Uterus is anteverted and normal in size at 7.9 x 3.2 x 4.2 cm. The myometrium is heterogene ous. The endometrium measures 2 mm in combined thickness. Ovaries: The right ovary measures 1.7 x 1.0 x 1.1 cm, with a calculated ovarian volume of 1 cc. The left ovary measures 1.4 x 1.1 x 1.4 cm, with a calculated ovarian volume of 1 cc. The ovaries have a unremarkable sonographic appearance. Less than 12 follicles can be seen in each ovary. No adnexal masses are seen. No cystic lesions measuring greater than 3 cm. Other: No pathologic free abdominal or pelvic fluid. IMPRESSION: 1. Endometrial thickness of 2 mm. Findings could represent endometrial atrophy. 2. No adnexal mass identified. Reviewed by: Hunter Harrison MD on 06/09/2023 3:16 PM PDT Approved by: Hunter Harrison MD on 06/09/2023 3:16 PM PDT Station ID: [id number]
== END 2023-06-09 07:02 | disposition home or self-care (01) ==
LOC: DI 07:01
PROVIDERS: ATTEND Obstetrics & Gynecology
DX: N95.0 Postmenopausal bleeding (principal)

== ENCOUNTER 2023-10-27 15:12 | Outpatient (CLI) | payer MEDICAID ==
--- NOTE | 2023-10-27 15:50 | Sleep Patient Instructions ---
Sleep Center Visit Summary - Patient Visit Information Reason for Visit: Initial consult for evaluation of sleep disordered breathing and other sleep issues. - Patient Instructions Instructions Attached: Sleep Study Home Monitor, Sleep Study Additional Instructions: You will be completing a sleep study, either an in-lab polysomnography (PSG) or home sleep study (HST). You will follow-up in the sleep care office after the sleep study is completed to hear the results and talk about therapy, if needed. You will be called by our office staff to schedule this appointment, but you may contact us with any questions. - Clinic Information Contact: [facility] [address] [place] [id number] [email or web address] T: [phone]
--- NOTE | 2023-10-27 16:00 | SLEEP CARE CONSULTATION ---
Information from patient questionnaire entered by Elizabet Morel. I have reviewed and concur with the information entered by Elizabet Morel. This document represents the service I personally performed and the decisions made by me, Tonia Packer ARNP. History of Present Illness Service Date and Time: 10/27/2023 1512 Reason for Visit: New patient Chief Complaint: reports: Insomnia, Unrefreshed sleep, Snoring, Observed pauses in breathing, Frequent awakenings at night Date of Onset: 5-10YRS Usual bedtime: 930-10PM Time it takes to fall asleep: 10-15IN Snores at night: Yes Observed to quit breathing while asleep: No Number of times waking at night: 5 Reasons for waking at night: reports: Snoring (possibly), Gasping for air (with panic feelings), Bathroom, Other (NOISE). denies: Choking Toss, Turn, or Twitch while sleeping: Yes Recalls having dreams: Yes Usually gets out of bed at: 730-8AM Feels refreshed in the morning: No Morning headache: Yes (3 times a week wakes up with head pressure, not pain) Sleepy or fatigued during the day: Yes Ever fallen asleep while driving: Yes (drowsy driving; fell asleep once over 10 yrs ago; don't drive often) Takes day naps: Yes (depends on phase of sleep; sometimes daily; recently none in last week) Dreams during day naps: No Prior sleep studies: Yes Additional HPI information: I had the pleasure of seeing KATELIN UP today regarding the possibility of her having a sleep disorder. Her current complaints are frequent night awakenings, observed pauses in breathing, snoring and unrefreshed sleep. Katelin comes in today because for over 10 years she has been having problems with daytime fatigue. She says she takes a lot of naps. Her family calls her a cat because of how much she sleeps sometimes. She says in the last ten years she regularly wakes up in a state of panic, sometimes gasping for air. She says she thinks it "feels chemical" and not emotional. It can take 20 seconds for her body to calm down and she will go back to sleep. She says sometimes these panic awakenings are paired with pain in the top of her feet and in her wrists, but this comes and goes. She says she sleeps alone so she does not know if she snores, but she thinks she does. She will wake up thinking she was hearing noise that could be snoring. She will not wake up feeling rested. She will also wake up with pressure feeling in her head about 3 times a week but says there really is not pain like a headache, just pressure. She says that she has noticed how her poor sleep is affecting her mood. She has a history of depression. She says the jolting awake has been less frequent in more recent past. She says she did have a home study about 10-15 years ago but it was negative. - Parasomnia Symptoms Ever been unable to move upon waking from sleep: No Walks in sleep: No Talks in sleep: No Ever acted out dreams in sleep: No Ever felt weak in the knees when startled or emotional: Yes (has not fallen to ground; she has had some dizziness but not related to leg) Bothered by creepy, crawly, restless sensations in legs: No Problems with memory or concentration: Yes (both) Subjective Initial [place] Sleepiness Scale score: 8 (10/27/23) Past Medical History Past Medical History: reports: Depression, Other (nasal deviated septal surgery in 2004?; Dizziness since July) Social History The patient's occupation is a SE. Patient is Single and lives in . Have you smoked in the past 12 months: No Alcohol use: Yes Alcohol amount and frequency: 1 DRINK PER WEEK Caffeine use: Yes Caffeine amount and frequency: 1 CUP OF COFFEEE IN THE MORNING Family History Family history of sleep disordered breathing: Yes Family Hx Sleep Apnea: Father: Snoring, Sleep apnea - Treated Allergies and Home Medications Known drug allergies: No Drug allergies reviewed: Yes Home medication list reviewed: Yes (as listed) Allergy and home medication list: Allergies No Known Drug Allergies Allergy (Verified 10/25/23 15:07) Home Medications Medication Instructions Recorded Confirmed Last Taken Type Estradiol 0.05 mg Patch [Climara 1 each TOP Q3D 06/05/21 10/27/23 12/17/21 History 0.05 mg] Progesterone, Micronized 100 mg PO QPM 06/05/21 10/27/23 12/17/21 History [Prometrium] Cholecalciferol (Vitamin D3) See Rx Instructions .ROUTE .COMPLEX 10/27/23 10/27/23 Unknown History [Vitamin D3] Escitalopram Oxalate [Lexapro] See Rx Instructions .ROUTE .COMPLEX 10/27/23 10/27/23 Unknown History Review of Systems Weight gain over past 5 years: 1-2 Cardiovascular: denies: high blood pressure Respiratory: denies: shortness of breath Gastrointestinal: denies: heartburn Neurological: reports: gait or balance problems Psychiatric: reports: depression Ear/Nose/Throat: reports: tonsillectomy, wisdom teeth removed Musculoskeletal: reports: joint pain Physical Exam Vital signs obtained and entered by: ELIZABET Weinberg MA Blood Pressure: 127/76 (LEFT ARM) Cuff size: regular Heart Rate: 64 O2 Saturation: 99 Height: 5 ft 5.5 in Weight: 139 lb 3.2 oz Body Mass Index: 22.8 BMI Classification: Normal Neck circumference: 13 Mouth and throat: narrow oropharynx Soft palate: long Hard palate: normal Uvula visualization: 25% Mallampati Class III Tongue: enlarged in size with teeth betancur on lateral edges Tonsils: absent bilaterally Neck: normal w/o lymphadenopathy or thyromegaly Heart: regular rate and rhythm Lungs: clear bilaterally Impression and Plan 1. Suspected Obstructive Sleep Apnea-Hypopnea Syndrome, as suggested by a history of irregular snoring, gasping or choking in sleep, morning headache, frequent awakening during the night, unrefreshed sleep and cognitive impairment. Narrow oropharynx and obesity are common predisposing factors for obstructive sleep apnea-hypopnea syndrome. I recommend proceeding to polysomnography to confirm the diagnosis and to assess severity. If the patient has significant sleep disordered breathing, a manual CPAP titration study will also be performed to find the optimal treatment pressure. I informed the patient of what the sleep studies involve and after some discussion, obtained agreement to proceed. The pathophysiology of obstructive sleep apnea-hypopnea syndrome was discussed with the patient and health risks of cardiovascular and cerebrovascular disease if not treated. Risks of drowsy driving discussed in detail and patient advised to avoid long distance driving and to candy puller at the first sign of drowsiness. Patient agreed to plan. * Schedule polysomnography * Avoid long distance driving or driving when feeling sleepy. * Avoid alcohol, sedative and muscle relaxant around bedtime. * Attempt to lose weight. * Review instructions provided by trained office staff on how to prepare for the sleep study. * Return for follow-up after sleep study completed. Counseling Topics: Weight loss health impact Follow up with Sleep Care in: other (after sleep study) Plan: PSG Visit Type: In Office Time Spent with Patient (minutes): 35 Provider Statement: I spent 100% of the Face to Face Visit with the patient with greater than 50% spent counseling the patient and coordination of care.
[2023-10-27 16:08] VITALS: BP 127/76; O2SAT 99
== END 2023-10-27 15:13 | disposition home or self-care (01) ==
LOC: SC 15:12
PROVIDERS: ATTEND Nurse Practitioner Family
DX: R53.83 Other fatigue (principal); G47.8 Other sleep disorders; R51.9 Headache, unspecified; R06.83 Snoring; R41.89 Other symptoms and signs involving cognitive functions and awareness; F32.A Depression, unspecified
CPT/HCPCS: 99203; 99212

== ENCOUNTER 2023-11-26 19:13 | Outpatient (CLI) | payer MEDICAID | END 2023-11-26 19:14 | disposition home or self-care (01) | LOC: SC 19:13 | PROVIDERS: ATTEND Nurse Practitioner Family | DX: R53.83 Other fatigue (principal); G47.8 Other sleep disorders; R51.9 Headache, unspecified; R06.83 Snoring; F32.A Depression, unspecified | CPT/HCPCS: 95810 ==

== ENCOUNTER 2023-12-02 09:34 | Outpatient (CLI) | payer MEDICAID ==
--- NOTE | 2023-12-02 08:44 | SLEEP CARE CONSULTATION ---
Information from patient questionnaire entered by Elizabet Morel. I have reviewed and concur with the information entered by Elizabet Morel. This document represents the service I personally performed and the decisions made by , Tonia Packer ARNP. History of Present Illness Service Date and Time: 12/02/2023 0840 Initial [place] Sleepiness Scale score: 8 (10/27/23) Current [place] Sleepiness Scale score: 9 (12/02/23) Additional HPI information: BRINA UP returns via video appointment for follow up and results of the recently performed polysomnography. The patient was informed of the following findings: No significant sleep disordered breathing with an average AHI of 0.2 and ran oxygen saturation of 92%. I explained the pathophysiology behind obstructive sleep apnea. Patient does not have sleep apnea and was advised how weight gain could increase the risk of developing sleep apnea in the future. Patient has light to moderate snoring. Snoring can also be treated with an oral appliance from a dentist. Advised to check insurance coverage. In addition, an ENT evaluation can be do to see if other treatment is indicated. Patient counseled not drink alcohol less than 4 hours before bedtime as it can increase snoring and apnea. Patient was cautioned about risks of drowsy driving until sleepiness symptoms resolve. Patient denies drowsy driving. Sleep Study - Results Type of Sleep Study: Polysomnography (COMPLETED 11/26/23) Prior sleep studies: Yes Polysomnography/Home Sleep Study results: IMPRESSION: The quality of the study is good. The patient had reduced sleep efficiency due to sleep onset abnormal for sleep fragmentation and reduced amount of time spent in slow wave sleep (N3). Respiratory monitoring showed no significant sleep disordered breathing (AHI = 0.2) or hypoxia (ran oxygen saturation of 92%). The patient slept adequately in supine position (supine AHI = 0.4; non-supine = 0.00). Snore was light to moderate in intensity. There was no significant periodic leg movement of sleep. Cardiac rhythm was normal sinus rhythm without significant arrhythmia. No abnormal behavior (parasomnia) observed during the night. Allergies and Home Medications Known drug allergies: No Drug allergies reviewed: Yes Home medication list reviewed: Yes (no changes) Allergy and home medication list: Allergies No Known Drug Allergies Allergy (Verified 11/30/23 09:45) Review of Systems Review of systems same as previous: Yes (NO CHANGE) Physical Exam Vital signs obtained and entered by: ELIZABET Weinberg MA Height: 5 ft 6 in (PER PT) Weight: 135 lb (PER PT) Body Mass Index: 21.7 BMI Classification: Normal Impression and Plan Snoring but no significant sleep disordered breathing. Patient advised that often weight loss will reduce snoring as well as apnea risk. An oral appliance can also be used for snoring. This would require a dental consultation. Patient cautioned not to use other online appliances as can cause bite issues. Patient is advised to check if insurance will cover. An ENT consult can also be helpful to determine if any other treatment is an option. * Maintain healthy weight * Avoid alcohol consumption near bedtime * The patient is cautioned about driving until sleepiness is completely resolved. * Return as needed for follow up. Counseling Topics: Weight control Follow up with Sleep Care in: as needed Visit Type: Telehealth Video Video Type: Doximity Patient Location: Home Location of Provider: Office Patient agrees and consents to this telehealth visit type: Yes Time Spent with Patient (minutes): 12 Provider Statement: I spent 100% of the Telehealth Video Call with the patient with greater than 50% spent counseling the patient and coordination of care.
== END 2023-12-02 09:35 | disposition home or self-care (01) ==
LOC: SC 09:34
PROVIDERS: ATTEND Nurse Practitioner Family
DX: R06.83 Snoring (principal)

== ENCOUNTER 2024-03-14 09:00 | Outpatient (CLI) | payer OTHER ==
[~2024-03-14 09:00] MED LIST changes: +GADOTERATE MEGLUMINE 7.5 MMOL/15 ML VIAL ONE; -LIDOCAINE 2%-EPI 1:100000 20 ML MDV ONE; -SILVER NITRATE APPLICATOR TOP ONE
--- NOTE | 2024-03-14 10:23 | MRI Report ---
PROCEDURE: Abdomen W/WO INDICATIONS: LIVER LESION CONTRAST: 12.2ml Clariscan TECHNIQUE: Coronal ultra fast SE, axial 2D spoiled GE in- and [id number]; axial breath-hold T2 fast SE. Dynam ic axial ultra fast GE during the administration of contrast; post-contrast coronal ultra fast GE or 2D spoiled GE with fat saturation from the hepatic dome to the iliac crests. Optional diffusion weig hted imaging and ADC may be performed. COMPARISON: No relevant comparisons available at time of dictation. FINDINGS: Image quality: Excellent. Lung bases and heart: Unremarkable. Liver: 5 mm T2 hyperintense focus without suspicious enhancement in segment 7 of the liver, most cons istent with a benign cyst (series 15, image 11). Gallbladder and biliary tree: No radiopaque stones or wall thickening. No biliary dilation. Spleen: No splenomegaly. Pancreas: No pancreatic ductal dilation. Adrenals: No adrenal nodule. Kidneys and ureters: No hydronephrosis. No renal cystic lesion which requires follow up. No solid mas s. Bowel and peritoneum: No bowel distension. No pathologic free fluid. Lymph nodes: No central or retroperitoneal adenopathy. Vessels: No infrarenal aortic aneurysm. Bones: No aggressive osseous abnormality. Other: No significant ventral hernia. IMPRESSION: Punctate cyst in segment 7 of the liver, which is benign. No additional liver lesions visualized, and no abnormal restricted diffusion present within the liver. Reviewed by: Tushar Burleson MD on 03/14/2024 10:22 AM PDT Approved by: Tushar Burleson MD on 03/14/2024 10:22 AM PDT Station ID: [id number]
[2024-03-14] MEDS: GADOTERATE MEGLUMINE 7.5 MMOL/15 ML VIAL IVP ONE (18:52)
== END 2024-03-14 09:01 | disposition home or self-care (01) ==
LOC: DI 09:00
PROVIDERS: ATTEND Internal Medicine
DX: K76.89 Other specified diseases of liver (principal)